=== PATIENT | female | born 1975 | race American Indian/Alaskan Native ===

== ENCOUNTER 2017-09-11 14:41 | Emergency (ER) | payer SELFPAY ==
[2017-09-11 15:11] VITALS: BP 124/95
[2017-09-11 15:56] LABS: Alanine Aminotransferase 15 units/L (7-56); Albumin 4.6 g/dL (3.9-5); Albumin/Globulin Ratio 1.2 %; Alkaline Phosphatase 64 units/L (35-129); Anion Gap 19 mmol/L; BUN/Creatinine Ratio 23; Blood Urea Nitrogen 16 mg/dL (7-17); Calcium 9.6 mg/dL (8.4-10.2); Carbon Dioxide 25 mmol/L (22-30); Glucose 96 mg/dL (65-100); Lipase 22 units/L (13-60); Potassium 4.2 mmol/L (3.6-5.0); Sodium 143 mmol/L (137-145); Total Protein 8.4 g/dL (6.3-8.2)
[2017-09-11 16:12] LABS: Basophils % (Auto) 0.4 % (0.0-1.8); Eosinophils % (Auto) 0.1 % (0.0-4.3); Hematocrit 37.4 % (30.3-42.9); Hemoglobin 12.4 gm/dl (10.1-14.3); Mean Corpuscular HGB Conc 33 % (30-34); Mean Corpuscular Hemoglobin 31 pg (28-32); Mean Corpuscular Volume 94 fl (79-97); Platelet Count 262 K/mm3 (140-440); Red Blood Count 3.99 M/mm3 (3.65-5.03); Red Cell Distribution Width 13.5 % (13.2-15.2); White Blood Count 8.2 K/mm3 (4.5-11.0)
== END 2017-09-11 18:10 | disposition left against medical advice (07) ==
LOC: ED 14:41
DX: R07.9 Chest pain, unspecified (principal); Z53.21 Procedure and treatment not carried out due to patient leaving prior to being seen by health care provider
CPT/HCPCS: 36415; 80053; 83690; 85025; 93005; 93010

== ENCOUNTER 2018-05-04 10:13 | Outpatient (CLI) | payer OTHER ==
--- NOTE | 2018-05-04 21:00 | XRay Report ---
FINAL REPORT EXAM: XR SPINE LUMBOSACRAL 2-3V HISTORY: FIBROMYALGIA, SCIATICA, VERTIGO, TECHNIQUE: AP, lateral and coned-down views of the lumbar spine PRIORS: None. FINDINGS: The vertebral body heights and disc spaces are well maintained. The alignment is normal. No evidence for spondylolysis or spondylolisthesis is seen. Pedicles are intact bilaterally at all levels. The paraspinal soft tissues are unremarkable. IMPRESSION: Normal lumbar spine.
--- NOTE | 2018-05-04 21:00 | XRay Report ---
FINAL REPORT EXAM: XR KNEE BILAT 1-2V HISTORY: FIBROMYALGIA, SCIATICA, VERTIGO, TECHNIQUE: AP and lateral views of bilateral knees PRIORS: None. FINDINGS: No acute fracture or dislocation is seen. The soft tissues are unremarkable with no evidence for suprapatellar joint effusion. The bony mineralization is normal. There is moderate narrowing of both medial joint compartments. IMPRESSION: No acute abnormality of the bilateral knees. Moderate narrowing of the medial joint compartments bilaterally.
== END 2018-05-04 10:14 | disposition home or self-care (01) ==
LOC: XRAY 10:13
PROVIDERS: ATTEND Internal Medicine
DX: M54.40 Lumbago with sciatica, unspecified side (principal); M79.7 Fibromyalgia; R42 Dizziness and giddiness; M19.90 Unspecified osteoarthritis, unspecified site; F32.9 Major depressive disorder, single episode, unspecified
CPT/HCPCS: 72100

== ENCOUNTER 2020-10-16 17:13 | Emergency (ER) | payer SELFPAY ==
--- NOTE | 2020-10-16 17:54 | Event Note ---
ED Screening Note Date of service: 10/16/20 Time: 17:53 ED Screening Note: Patient complains of sudden onset of right-sided chest pain this morning States minimal shortness of breath Pain is reproducible with palpation History of hypertension, asthma This initial assessment/diagnostic orders/clinical plan/treatment(s) is/are subject to change based on patients health status, clinical progression and re- assessment by fellow clinical providers in the ED. Further treatment and workup at subsequent clinical providers discretion. Patient/guardian urged not to elope from the ED as their condition may be serious if not clinically assessed and managed. Initial orders include: Labs EKG Chest xr
[2020-10-16 18:58] LABS: Basophils % (Auto) 0.2 % (0.0-1.8); Eosinophils # (Auto) 0.1 K/mm3 (0.0-0.4); Hematocrit 36.6 % (30.3-42.9); Lymphocytes # (Auto) 2.2 K/mm3 (1.2-5.4); Lymphocytes % (Auto) 28.4 % (13.4-35.0); Mean Corpuscular HGB Conc 33 % (30-34); Mean Corpuscular Volume 92 fl (79-97); Monocytes # (Auto) 0.6 K/mm3 (0.0-0.8); Platelet Count 257 K/mm3 (140-440); Red Blood Count 3.99 M/mm3 (3.65-5.03); Red Cell Distribution Width 14.4 % (13.2-15.2)
[2020-10-16 19:09] LABS: Alanine Aminotransferase 16 units/L (7-56); Albumin 4.1 g/dL (3.9-5); BUN/Creatinine Ratio 15; Blood Urea Nitrogen 12 mg/dL (7-17); Calcium 9.3 mg/dL (8.4-10.2); Hemolysis Index 7
--- NOTE | 2020-10-16 19:39 | XRay Report ---
CHEST 2 VIEWS INDICATION: Right-sided chest pain. COMPARISON: 02/17/2020 FINDINGS: Support devices: None. Heart: Within normal limits. Lungs/pleura: No acute air space or interstitial disease. No pneumothorax. Additional findings: Surgical clips are noted in the right breast, correlate with history. IMPRESSION: No acute findings. Signer Name: Alvino Adam Jr, MD Signed: 10/16/2020 7:38 PM Workstation Name: [id number]
[2020-10-16 22:50] VITALS: BP 152/100
== END 2020-10-16 23:30 | disposition left against medical advice (07) ==
LOC: ED 17:13
DX: R07.89 Other chest pain (principal); Z53.21 Procedure and treatment not carried out due to patient leaving prior to being seen by health care provider
CPT/HCPCS: 36415; 71046; 80053; 84484; 85025; 93005

== ENCOUNTER 2022-07-10 09:58 | Emergency (ER) | payer OTHER ==
[2022-07-10] MEDS ORDERED: SODIUM CHLORIDE 0.9% 1000 ML 1,000 ML IV ONE (10:21)
--- NOTE | 2022-07-10 11:23 | XRay Report ---
CHEST 1 VIEW 07/10/2022 10:14 AM INDICATION / CLINICAL INFORMATION: Syncope. COMPARISON: 10/16/2020 FINDINGS: SUPPORT DEVICES: None. HEART / MEDIASTINUM: No significant abnormality. LUNGS / PLEURA: No significant pulmonary or pleural abnormality. No pneumothorax. ADDITIONAL FINDINGS: No significant additional findings. IMPRESSION: 1. No acute findings. Signer Name: Alvino Adam Jr, MD Signed: 07/10/2022 11:19 AM Workstation Name: [id number]
[2022-07-10 11:42] LABS: Basophils # (Auto) 0.1 K/mm3 (0.0-0.1); Eosinophils % (Auto) 0.5 % (0.0-4.3); Hematocrit 39.7 % (30.3-42.9); Hemoglobin 13.1 gm/dl (10.1-14.3); Lymphocytes % (Auto) 35.8 % (13.4-35.0); Mean Corpuscular HGB Conc 33 % (30-34); Mean Corpuscular Volume 93 fl (79-97); Monocytes # (Auto) 0.3 K/mm3 (0.0-0.8); Monocytes % (Auto) 5.8 % (0.0-7.3); Platelet Count 277 K/mm3 (140-440); Red Blood Count 4.26 M/mm3 (3.65-5.03)
[2022-07-10 11:48] LABS: Alanine Aminotransferase 10 units/L (7-56); Albumin 4.4 g/dL (3.9-5); Blood Urea Nitrogen 16 mg/dL (7-17); Calcium 9.6 mg/dL (8.4-10.2); Creatine Kinase MB < 1.0 ng/mL (0.0-4.0); Hemolysis Index 16
[2022-07-10 11:49] LABS: INR 0.87 (0.87-1.13)
[2022-07-10 11:49] LABS: BUN/Creatinine Ratio 23
[2022-07-10] MEDS ORDERED: POTASSIUM CHLORIDE ER 20 MEQ TAB PO ONE (13:00)
--- NOTE | 2022-07-10 13:08 | Cat Scan Report ---
CT head/brain wo con INDICATION / CLINICAL INFORMATION: 46 years Female; Syncope. TECHNIQUE: Routine CT head without contrast. All CT scans at this location are performed using CT dos e reduction for ALARA by means of automated exposure control. COMPARISON: None. FINDINGS: BRAIN / INTRACRANIAL CONTENTS: Old lacunar infarct is suggested in the right lentiform nucleus. Small lacunar-type infarct is seen in the posterior head of the caudate on the right. Otherwise, no acute hemorrhage, mass effect, midline shift, hydrocephalus, or acute, large territoria l infarct. No signs of significant atrophy or chronic infarct. No significant white matter abnormalit y seen. CRANIOCERVICAL JUNCTION: No significant abnormality. ORBITS: No significant abnormality of visualized orbits. SINUSES / MASTOIDS: Moderate mucosal thickening in the ethmoids. Mild to moderate mucosal thickening in the mastoids. Mucous retention cyst/polyp seen in the right maxillary antrum. Mild mucosal thicken ing in the mastoids. ADDITIONAL FINDINGS: None. IMPRESSION: 1. No focal mass, hemorrhage, hydrocephalus, or acute, large territorial infarct. Follow-up with diff usion imaging by MRI, as clinically warranted. Signer Name: Speedy Reyes MD, III Signed: 07/10/2022 1:04 PM Workstation Name: [id number]
[2022-07-10 14:05] VITALS: BP 114/83
--- NOTE | 2022-07-10 14:12 | Emergency Department Report ---
ED Syncope HPI - General Chief Complaint: Syncope Stated Complaint: SYNCOPAL EPISODE Time Seen by Provider: 07/10/22 10:14 Source: patient Exam Limitations: no limitations - History of Present Illness Initial Comments: pt reports having syncopal episode at doctors office, unsure if hit head, reports pain all over, multiple complaints Timing/Prior Episodes: no prior history Precipitating Factors: Positive: lightheadedness, nausea Context: standing Loss of Consciousness: brief (seconds) Current Symptoms: back to normal - Related Data Allergies/Adverse Reactions: Allergies No Known Allergies Allergy (Verified 07/10/22 10:11) Home Medications: Ambulatory Orders Albuterol Mdi (or & Nicu Only) [ProAir HFA Inhaler] 2 puff IH QID PRN #1 inhalation 02/18/20 ED Review of Systems ROS: Stated complaint: SYNCOPAL EPISODE Other details as noted in HPI Constitutional: denies: chills, fever Eyes: denies: eye pain, eye discharge, vision change ENT: denies: ear pain, throat pain Respiratory: denies: cough, shortness of breath, wheezing Cardiovascular: denies: chest pain, palpitations Endocrine: no symptoms reported Gastrointestinal: denies: abdominal pain, nausea, diarrhea Genitourinary: denies: urgency, dysuria, discharge Musculoskeletal: denies: back pain, joint swelling, arthralgia Skin: denies: rash, lesions Neurological: denies: headache, weakness, paresthesias Psychiatric: denies: anxiety, depression Hematological/Lymphatic: denies: easy bleeding, easy bruising ED Past Medical Hx - Past Medical History Hx Hypertension: Yes Hx CVA: No Hx Heart Attack/AMI: No Hx Headaches / Migraines: Yes Hx Psychiatric Treatment: Yes (anxiety) Hx Asthma: Yes Additional medical history: BREAST CANCER, FIBROIDS, fibromyalgia - Surgical History Hx Breast Surgery: Yes - Social History Smoking Status: Unknown if ever smoked Substance Use Type: None - Medications Home Medications: Home Medications Medication Instructions Recorded Confirmed Last Taken Type Albuterol Mdi (or & Nicu Only) 2 puff IH QID PRN #1 inhalation 02/18/20 Unknown Rx [ProAir HFA Inhaler] ED Physical Exam - General Limitations: No Limitations General appearance: alert, in no apparent distress - Head Head exam: Present: atraumatic, normocephalic - Eye Eye exam: Present: normal appearance - ENT ENT exam: Present: mucous membranes moist - Neck Neck exam: Present: normal inspection - Respiratory Respiratory exam: Present: normal lung sounds bilaterally. Absent: respiratory distress - Cardiovascular Cardiovascular Exam: Present: regular rate, normal rhythm. Absent: systolic murmur, diastolic murmur, rubs, gallop - GI/Abdominal GI/Abdominal exam: Present: soft, normal bowel sounds - Extremities Exam Extremities exam: Present: normal inspection - Back Exam Back exam: Present: normal inspection - Neurological Exam Neurological exam: Present: alert, oriented X3 - Psychiatric Psychiatric exam: Present: normal affect, normal mood - Skin Skin exam: Present: warm, dry, intact, normal color. Absent: rash ED Course Vital Signs 07/10/22 07/10/22 07/10/22 10:04 10:18 10:30 Temperature 98.7 F Pulse Rate 62 64 Respiratory 16 16 Rate Blood Pressure 131/93 Blood Pressure 142/96 [Left] O2 Sat by Pulse 98 98 97 Oximetry 07/10/22 07/10/22 07/10/22 11:00 11:30 12:00 Temperature Pulse Rate 60 58 L 56 L Respiratory 13 19 14 Rate Blood Pressure 123/84 132/92 125/84 Blood Pressure [Left] O2 Sat by Pulse 96 98 96 Oximetry 07/10/22 07/10/22 07/10/22 12:31 13:01 13:30 Temperature Pulse Rate 61 68 60 Respiratory 18 16 17 Rate Blood Pressure 131/90 Blood Pressure [Left] O2 Sat by Pulse 98 98 98 Oximetry 07/10/22 14:00 Temperature Pulse Rate 64 Respiratory 19 Rate Blood Pressure 114/83 Blood Pressure [Left] O2 Sat by Pulse 98 Oximetry ED Medical Decision Making - Lab Data Result diagrams: 07/10/22 11:07 07/10/22 11:00 - EKG Data -: EKG Interpreted by Tn EKG shows normal: sinus rhythm Rate: normal - EKG Data Interpretation: no acute changes - Radiology Data Radiology results: report reviewed, image reviewed - Medical Decision Making work up showed normal ct and x ray potassium replaced, vss no distress Critical care attestation.: If time is entered above; I have spent that time in minutes in the direct care of this critically ill patient, excluding procedure time. ED Disposition Clinical Impression: Weakness, Hypokalemia Disposition: 01 HOME / SELF CARE / HOMELESS Is pt being admited?: No Does the pt Need Aspirin: No Condition: Stable Instructions: Hypokalemia, Weakness Referrals: PRIMARY CARE, [Primary Care Provider] - 3-5 Days
--- NOTE | 2022-07-11 08:55 | Electrocardiograph Report ---
[facility] Test Date: 2022-07-10 Test Time: 10:25:37 Pat Name: PACO AGUAYO Department: Room: Gender: F [employer] Plant Operator: NURSE : 1975 Requested By: VAL KATZ Order Number: [id number] Reading MD: Jamir Snow Measurements Intervals [place] Rate: 61 P: 17 MI: 168 QRS: 27 QRSD: 74 T: 8 QT: 429 QTc: 432 Interpretive Statements Sinus rhythm nonspecific st-t No previous ECG available for comparison Electronically Signed On 07-11-2022 8:55:26 EDT by Jamir Snow
== END 2022-07-10 14:44 | disposition home or self-care (01) ==
LOC: ED 09:58
DX: R53.1 Weakness (principal); E87.6 Hypokalemia; I10 Essential (primary) hypertension; J45.909 Unspecified asthma, uncomplicated; F41.9 Anxiety disorder, unspecified
CPT/HCPCS: 36415; 70450; 71045; 80053; 82010; 82550; 82553; 83735; 83880; 84484; 85025; 85610; 93005; 96360; 99285; J7030